=== PATIENT | male | born 1970 | race Caucasian/White ===

== ENCOUNTER 2018-06-09 15:25 | Emergency (ER) | payer BC, OTHER ==
[2018-06-09 16:23] LABS: BASO % 0.8 % (0.0-1.0); EOS % 0.8 % (0.0-3.0); HEMATOCRIT 47.6 % (42.0-52.0); HEMOGLOBIN 16.8 g/dl (13.5-17.5); IMMATURE GRANULOCYTE % 0.4 % (0-3.0); LYMPH # 0.9 10^3/uL (1.5-4.5); LYMPH % 16.4 % (24.0-44.0); MEAN CORPUSCULAR HEMOGLOBIN 29.6 pg (27.0-33.0); MEAN CORPUSCULAR HGB CONC 35.3 g/dl (32.0-36.5); MEAN CORPUSCULAR VOLUME 83.8 fl (80.0-96.0); MONO # 0.8 10^3/uL (0.0-0.8); MONO % 15.2 % (0.0-5.0); NEUTROPHILS # 3.5 10^3/uL (1.8-7.7); NEUTROPHILS % 66.4 % (36.0-66.0); PLATELET COUNT, AUTOMATED 219 10^3/uL (150-450); RED BLOOD COUNT 5.68 10^6/uL (4.30-6.10); RED CELL DISTRIBUTION WIDTH 12.5 % (11.5-14.5); WHITE BLOOD COUNT 5.3 10^3/uL (4.0-10.0)
[2018-06-09] MEDS: NS 1,000 ML IV ×2 (16:28)
[2018-06-09] MEDS: GASTROGRAFIN SOLUTION 30ML PO ×4 (16:29→17:00)
[2018-06-09 16:45] LABS: ALBUMIN 3.6 GM/DL (3.2-5.2); ALBUMIN/GLOBULIN RATIO 0.95 (1.00-1.93); ALKALINE PHOSPHATASE 64 U/L (45-117); ALT/SGPT 65 U/L (12-78); ANION GAP 11 MEQ/L (8-16); AST/SGOT 37 U/L (7-37); BILIRUBIN,DIRECT 0.1 MG/DL (0.0-0.2); BILIRUBIN,TOTAL 0.7 MG/DL (0.2-1.0); BLOOD UREA NITROGEN 14 MG/DL (7-18); CALCIUM LEVEL 8.9 MG/DL (8.5-10.1); CARBON DIOXIDE LEVEL 24 MEQ/L (21-32); CHLORIDE LEVEL 99 MEQ/L (98-107); CREATININE FOR GFR 1.08 MG/DL (0.70-1.30); GLOMERULAR FILTRATION RATE > 60.0 (>60); GLUCOSE, FASTING 200 MG/DL (70-100); LIPASE 89 U/L (73-393); POTASSIUM SERUM 3.6 MEQ/L (3.5-5.1); SODIUM LEVEL 134 MEQ/L (136-145); TOTAL PROTEIN 7.4 GM/DL (6.4-8.2)
[2018-06-09 16:57] LABS: LACTIC ACID SEPSIS PROTOCOL 1.5 MMOL/L (0.4-2.0)
[2018-06-09] MEDS ORDERED: ISOVUE-370 76% 100ML VIAL (Q9967) As Ordered ×2 (17:43)
[2018-06-09 18:22] LABS: KETONE, URINE AUTO RFX 1+ mg/dL (NEGATIVE); LEUKOCYTE ESTERASE UR AUTO RFX NEGATIVE (NEGATIVE); MUCUS, URINE RFX SMALL (NEGATIVE); NITRITE, URINE AUTO RFX NEGATIVE (NEGATIVE); RBC, URINE AUTO RFX 6 /HPF (0-3); SPECIFIC GRAVITY UR AUTO RFX 1.023 (1.002-1.035); SQUAM EPITHELIAL CELL UR AURFX 0 /HPF (0-6); WBC, URINE AUTO RFX 1 /HPF (0-3)
== END 2018-06-09 19:44 | disposition home or self-care (01) ==
LOC: M ED 15:25
DX: K52.9 Noninfective gastroenteritis and colitis, unspecified (principal); E11.9 Type 2 diabetes mellitus without complications; I10 Essential (primary) hypertension; E78.5 Hyperlipidemia, unspecified; I25.10 Atherosclerotic heart disease of native coronary artery without angina pectoris; Z79.899 Other long term (current) drug therapy; Z79.82 Long term (current) use of aspirin; Z79.84 Long term (current) use of oral hypoglycemic drugs; F17.210 Nicotine dependence, cigarettes, uncomplicated
CPT/HCPCS: Q9963

== ENCOUNTER → 2020-10-16 | Outpatient (CLI) | payer BC, OTHER ==
[~2020-10-16] MED LIST: ALLE10TA32 PO; ASPI81TA26 PO; ASPI81TA86 PO; ATOR80TA59 PO; CLOP75TA2 PO; D31000TA2 PO; LISI-538 PO; METF10004 PO; METO50TA7 PO; OMEP1CAP73 PO; VITA-122 PO; ZOFR4TAB14 PO
== END ==
LOC: M LABSMTC 10:23
PROVIDERS: ATTEND Anesthesiology
DX: Z01.812 Encounter for preprocedural laboratory examination (principal); Z20.828 Contact with and (suspected) exposure to other viral communicable diseases

== ENCOUNTER 2020-10-21 06:59 | Day surgery (SDC) | payer OTHER ==
[~2020-10-21] VITALS: Ht 185.4 cm; Wt 77.1 kg
[2020-10-21] MEDS ORDERED: NS 1,000 ML IV ONE (07:00)
[2020-10-21] MEDS ORDERED: propofoL 200 MG/20 ML VIAL As Ordered ONE (07:14)
[2020-10-21] MEDS ORDERED: LIDOCAINE 2% 100MG/5ML SDV (FOR ANES.) As Ordered ONE (07:14)
--- NOTE | 2020-10-21 09:26 | ROOR ---
Patient Name: Munir Martin Procedure Date: 10/21/2020 8:46 AM Date of : 1970 Age: 50 Room: [facility] Gender: Male Note Status: Finalized Procedure: Colonoscopy Indications: Screening for colorectal malignant neoplasm Providers: Barrie Cabrera MD Referring MD: [facility], Admin. Requesting Provider: Medicines: Monitored Anesthesia Care Complications: No immediate complications. Procedure: Pre-Anesthesia Assessment: - Prior to the procedure, a History and Physical was performed, and patient medications and allergies were reviewed. The patient is competent. The risks and benefits of the procedure and the sedation options and risks were discussed with the patient. All questions were answered and informed consent was obtained. Patient identification and proposed procedure were verified by the physician, the nurse and the anesthesiologist in the endoscopy suite. Mental Status Examination: alert and oriented. Airway Examination: normal oropharyngeal airway and neck mobility. Respiratory Examination: clear to auscultation. CV Examination: normal. Prophylactic Antibiotics: The patient does not require prophylactic antibiotics. Prior Anticoagulants: The patient has taken no previous anticoagulant or antiplatelet agents. ASA Grade Assessment: III - A patient with severe systemic disease. After reviewing the risks and benefits, the patient was deemed in satisfactory condition to undergo the procedure. The anesthesia plan was to use monitored anesthesia care (MAC). Immediately prior to administration of medications, the patient was re-assessed for adequacy to receive sedatives. The heart rate, respiratory rate, oxygen saturations, blood pressure, adequacy of pulmonary ventilation, and response to care were monitored throughout the procedure. The physical status of the patient was re-assessed after the procedure. The Colonoscope was introduced through the anus and advanced to the cecum, identified by appendiceal orifice and ileocecal valve. The colonoscopy was performed without difficulty. The patient tolerated the procedure well. The quality of the bowel preparation was adequate to identify polyps. Findings: The perianal and digital rectal examinations were normal. Two sessile polyps were found in the sigmoid colon. The polyps were 5 to 10 mm in size. These polyps were removed with a hot snare. Resection and retrieval were complete. Estimated blood loss: none. A few small-mouthed diverticula were found in the sigmoid colon. The retroflexed view of the distal rectum and anal verge was normal and showed no anal or rectal abnormalities. Impression: - Two 5 to 10 mm polyps in the sigmoid colon, removed with a hot snare. Resected and retrieved. - Diverticulosis in the sigmoid colon. - The distal rectum and anal verge are normal on retroflexion view. Recommendation: - Discharge patient to home (ambulatory). - Repeat colonoscopy in 5 years for surveillance based on pathology results. - Await pathology results. - High fiber diet indefinitely. Procedure Code(s): --- Professional --- 11509, Colonoscopy, flexible; with removal of tumor(s), polyp(s), or other lesion(s) by snare technique Diagnosis Code(s): --- Professional --- Z12.11, Encounter for screening for malignant neoplasm of colon K63.5, Polyp of colon K57.30, Diverticulosis of large intestine without perforation or abscess without bleeding CPT copyright 2019 [employer]. All rights reserved. The codes documented in this report are preliminary and upon elevator inspector review may be revised to meet current compliance requirements. Barrie Cabrera MD Barrie Cabrera MD 10/21/2020 9:25:52 AM Electronically signed by Barrie Cabrera MD Number of Addenda: 0 Note Initiated On: 10/21/2020 8:46 AM Estimated Blood Loss: Estimated blood loss: none.
[2020-10-21 09:40] VITALS: BP 140/90
== END 2020-10-21 09:50 | disposition home or self-care (01) ==
LOC: M OPP 06:59
PROVIDERS: ATTEND Surgery
DX: Z12.11 Encounter for screening for malignant neoplasm of colon (principal); D12.5 Benign neoplasm of sigmoid colon; K57.92 Diverticulitis of intestine, part unspecified, without perforation or abscess without bleeding

== ENCOUNTER → 2021-02-03 | Outpatient (CLI) | payer OTHER ==
[~2021-02-03] MED LIST changes: -LISI-538 PO; +LISI20TA33 PO
--- NOTE | 2021-02-03 18:30 | REP ---
INDICATION: LT LEG LESION ABOVE KNEE ? CYST VS SOLID. COMPARISON: None. TECHNIQUE: Ultrasonography, including Doppler ultrasound, of a palpable lump medial to the left patella and a 2nd palpable lump superomedial to the left patella. FINDINGS: The palpable lumps correspond to vessels. There is no vascular flow within the palpable lumps, however there is vascular flow in vessels adjacent to the palpable lumps that suggests that the palpable lumps correspond to thrombus within vessels. The thrombus is likely within varicose veins which are superficial veins of the lower extremity. IMPRESSION: The palpable lumps correspond to thrombus within varicose veins. There are no other nodules or masses. <Electronically signed by Kasi Leigh > 02/03/21 [id number]
== END ==
LOC: M RAD 09:19
PROVIDERS: ATTEND Physician Assistant Medical
DX: I82.812 Embolism and thrombosis of superficial veins of left lower extremity (principal)

== ENCOUNTER 2022-03-15 21:29 | Emergency (ER) | payer OTHER ==
[~2022-03-15] VITALS: Ht 185.4 cm; Wt 77.3 kg
[~2022-03-15 21:29] MED LIST changes: -D31000TA2 PO; +VITA100093 PO
[2022-03-15 22:30] LABS: HEMATOCRIT 41.5 % (42.0-52.0); HEMOGLOBIN 13.7 g/dl (13.5-17.5); MEAN CORPUSCULAR HEMOGLOBIN 28.7 pg (27.0-33.0); PLATELET COUNT, AUTOMATED 210 10^3/uL (150-450); RED BLOOD COUNT 4.77 10^6/uL (4.30-6.10); WHITE BLOOD COUNT 8.7 10^3/uL (4.0-10.0)
[2022-03-15] MEDS ORDERED: GI COCKTAIL 50ML BTL(HYOSCYAMINE/MAALOX/LIDOCAINE VISCOUS)(1:3:1) PO ONE (23:00)
[2022-03-15] MEDS ORDERED: ASPIRIN 81 MG CHEW TABLET PO ONE (23:00)
[2022-03-15 23:01] LABS: BLOOD UREA NITROGEN 16 MG/DL (7-18); CALCIUM LEVEL 9.4 MG/DL (8.5-10.1); CARBON DIOXIDE LEVEL 25 MEQ/L (21-32); CHLORIDE LEVEL 109 MEQ/L (98-107); CREATININE FOR GFR 0.89 MG/DL (0.70-1.30); GLOMERULAR FILTRATION RATE > 60.0 (>56); GLUCOSE, FASTING 205 MG/DL (70-100); POTASSIUM SERUM 3.8 MEQ/L (3.5-5.1); SODIUM LEVEL 141 MEQ/L (136-145)
[2022-03-15 23:05] LABS: CK-MB VALUE MASS 1.9 NG/ML (<3.6); MB/CK RELATIVE INDEX 1.16 (< OR =4)
[2022-03-15 23:16] LABS: ALBUMIN 3.8 GM/DL (3.2-5.2); ALT/SGPT 34 U/L (12-78); BILIRUBIN,DIRECT 0.1 MG/DL (0.0-0.2); BILIRUBIN,TOTAL 0.3 MG/DL (0.2-1.0); LIPASE 149 U/L (73-393); TOTAL PROTEIN 6.8 GM/DL (6.4-8.2)
[2022-03-15 23:56] LABS: MB/CK RELATIVE INDEX 1.33 (< OR =4)
[2022-03-16 01:30] VITALS: BP 115/68
== END 2022-03-16 01:50 | disposition home or self-care (01) ==
LOC: M ED 21:29
DX: K21.9 Gastro-esophageal reflux disease without esophagitis (principal); E11.9 Type 2 diabetes mellitus without complications; I10 Essential (primary) hypertension; Z95.5 Presence of coronary angioplasty implant and graft; Z79.899 Other long term (current) drug therapy; Z79.84 Long term (current) use of oral hypoglycemic drugs; Z79.82 Long term (current) use of aspirin; Z79.01 Long term (current) use of anticoagulants; F17.210 Nicotine dependence, cigarettes, uncomplicated

== ENCOUNTER 2023-08-16 15:27 | Emergency (ER) | payer OTHER ==
[~2023-08-16] VITALS: Ht 185.4 cm; Wt 75.1 kg
[2023-08-16] MEDS ORDERED: SEMA0.257 (15:48)
[2023-08-16] MEDS ORDERED: GABA-282 (15:48)
[2023-08-16] MEDS ORDERED: JARD1TAB3 (15:48)
[2023-08-16 16:38] LABS: BASO # 0.1 10^3/uL (0.0-0.2); BASO % 0.5 % (0.0-1.0); EOS # 0.1 10^3/uL (0.0-0.5); EOS % 1.4 % (0.0-3.0); HEMATOCRIT 38.1 % (42.0-52.0); HEMOGLOBIN 12.9 g/dl (13.5-17.5); LYMPH # 1.9 10^3/uL (1.5-5.0); LYMPH % 20.2 % (24.0-44.0); MEAN CORPUSCULAR HEMOGLOBIN 28.3 pg (27.0-33.0); MEAN CORPUSCULAR HGB CONC 33.9 g/dl (32.0-36.5); MEAN CORPUSCULAR VOLUME 83.6 fl (80.0-96.0); MONO # 0.7 10^3/uL (0.0-0.8); MONO % 7.7 % (2.0-8.0); NEUTROPHILS # 6.7 10^3/uL (1.5-8.5); NEUTROPHILS % 69.8 % (36.0-66.0); PLATELET COUNT, AUTOMATED 245 10^3/uL (150-450); RED BLOOD COUNT 4.56 10^6/uL (4.30-6.10); WHITE BLOOD COUNT 9.5 10^3/uL (4.0-10.0)
[2023-08-16 16:47] LABS: ERYTHROCYTE SEDIMENTATION RATE 41 mm/hr (0-20)
[2023-08-16 17:02] LABS: BLOOD UREA NITROGEN 22 MG/DL (9-23); CARBON DIOXIDE LEVEL 24 MMOL/L (20-31); CHLORIDE LEVEL 104 MMOL/L (98-107); CREATININE FOR GFR 0.77 MG/DL (0.70-1.30); GLOMERULAR FILTRATION RATE > 60.0 (>56); GLUCOSE, FASTING 127 MG/DL (60-100); SODIUM LEVEL 138 MMOL/L (136-145)
[2023-08-16] MEDS ORDERED: CEPH500T PO (17:13)
[2023-08-16] MEDS ORDERED: CEPHALEXIN 500 MG CAP PO ONE (17:15)
[2023-08-16 17:24] VITALS: BP 128/83; TEMP 98.1; O2SAT 98
== END 2023-08-16 17:28 | disposition home or self-care (01) ==
LOC: M ED 15:27
DX: L03.115 Cellulitis of right lower limb (principal); E11.9 Type 2 diabetes mellitus without complications; I10 Essential (primary) hypertension; I25.2 Old myocardial infarction; E78.5 Hyperlipidemia, unspecified; Z95.5 Presence of coronary angioplasty implant and graft; F17.200 Nicotine dependence, unspecified, uncomplicated; Z79.84 Long term (current) use of oral hypoglycemic drugs; Z79.82 Long term (current) use of aspirin; Z79.899 Other long term (current) drug therapy

== ENCOUNTER 2024-01-24 06:46 | Day surgery (SDC) | payer OTHER ==
[~2024-01-24] VITALS: Ht 185.4 cm; Wt 71.1 kg
[~2024-01-24 06:46] MED LIST changes: +CEPH500T PO; +GABA-282; +JARD1TAB3 PO; +METF750T36 PO; +OMEP-173 PO; +SEMA0.257 SC
[2024-01-24] MEDS: NS 1,000 ML IV ONE (07:05)
[2024-01-24] MEDS ORDERED: propofoL 500 MG/50 ML VIAL As Ordered ONE (07:38)
[2024-01-24] MEDS ORDERED: LIDOCAINE 2% 100MG/5ML SDV (FOR ANES.) As Ordered ONE (07:38)
[2024-01-24 07:55] VITALS: TEMP 98.2
[2024-01-24 08:10] VITALS: BP 114/77; O2SAT 97
== END 2024-01-24 08:13 | disposition home or self-care (01) ==
LOC: M OPP 06:46
PROVIDERS: ATTEND Surgery
DX: Z12.11 Encounter for screening for malignant neoplasm of colon (principal); Z86.010 Personal history of colon polyps; Z53.8 Procedure and treatment not carried out for other reasons; F17.200 Nicotine dependence, unspecified, uncomplicated; Z95.5 Presence of coronary angioplasty implant and graft; Z86.74 Personal history of sudden cardiac arrest; E11.9 Type 2 diabetes mellitus without complications; Z79.2 Long term (current) use of antibiotics; Z79.82 Long term (current) use of aspirin; Z79.84 Long term (current) use of oral hypoglycemic drugs; Z79.899 Other long term (current) drug therapy

== ENCOUNTER 2024-04-03 07:03 | Day surgery (SDC) | payer OTHER ==
[~2024-04-03] VITALS: Ht 185.4 cm; Wt 72.6 kg
[~2024-04-03 07:03] MED LIST changes: +METF-839 PO; +NS 1,000 ML IV ONE; +SEMA1PEN2 SQ
[2024-04-03] MEDS ORDERED: LIDOCAINE 2% 100MG/5ML SDV (FOR ANES.) As Ordered ONE (08:16)
[2024-04-03] MEDS ORDERED: propofoL 200 MG/20 ML VIAL As Ordered ONE (08:16)
[2024-04-03 09:29] VITALS: TEMP 97.9
[2024-04-03 09:55] VITALS: BP 135/78; O2SAT 99
== END 2024-04-03 10:05 | disposition home or self-care (01) ==
LOC: M OPP 07:03
PROVIDERS: ATTEND Surgery
DX: Z12.11 Encounter for screening for malignant neoplasm of colon (principal); Z86.010 Personal history of colon polyps; K57.30 Diverticulosis of large intestine without perforation or abscess without bleeding; I10 Essential (primary) hypertension; E11.9 Type 2 diabetes mellitus without complications; F17.200 Nicotine dependence, unspecified, uncomplicated; Z86.74 Personal history of sudden cardiac arrest; Z95.5 Presence of coronary angioplasty implant and graft; Z79.01 Long term (current) use of anticoagulants; Z79.02 Long term (current) use of antithrombotics/antiplatelets; Z79.82 Long term (current) use of aspirin; Z79.84 Long term (current) use of oral hypoglycemic drugs; Z79.899 Other long term (current) drug therapy